=== PATIENT | female | born 1970 | race Caucasian/White ===

== ENCOUNTER → 2016-10-11 | Outpatient (CLI) | payer BC ==
[~2016-10-11] MED LIST: ATEN50TA2 PO; CLON-412 PO; COLA100C PO; HYDR-4274 PO; LISI20TA PO; PARO10TA84 PO; VENL75TA2 PO; VITA100037 PO
--- NOTE | 2016-10-11 12:46 | ECGEPIP ---
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
== END ==
LOC: M ADMPAT 10:57
PROVIDERS: ATTEND Orthopaedic Surgery
DX: Z01.818 Encounter for other preprocedural examination (principal); M54.12 Radiculopathy, cervical region

== ENCOUNTER 2016-10-18 12:02 | Inpatient (IN) | payer BC ==
--- NOTE | 2016-10-13 16:59 | HPE ---
DATE OF ADMISSION: 10/18/2016 HISTORY OF PRESENT ILLNESS: This is a pleasant female with continuing neck discomfort and right arm radiculopathy. She has consented for an C5-C6 cervical decompression and fusion per Dr. Isaak Rodriguez. States that she is healthy and did not require medical clearance. Her x-ray and MRI imaging are consistent with C5-C6 degenerative disk disease with radiculopathy. The patient notes that she has quit smoking. ALLERGIES: No known drug allergies. CURRENT MEDICATIONS: List includes: - atenolol 50 mg - lisinopril-hydrochlorothiazide 20-12.5 mg - venlafaxine HCl 75 mg - paroxetine HCl 10 mg - clonidine HCl 0.1 mg - Colace 100 mg - hydroxyzine HCl 50 mg MEDICAL PROBLEM LIST: 1. Cervicalgia and right arm radiculopathy. 2. Hypertension. 3. Anxiety. 4. Depression. 5. Bursitis of the bilateral hips. SURGICAL HISTORY: Includes ablation endometrial, hemorrhoidectomy. FAMILY HISTORY: Pertinent for arthritis, diabetes, hypertension, hypercholesteremia, heart disease. SOCIAL HISTORY: States that she quit smoking since being counseled by Dr. Isaak Rodriguez, prior to that she was a daily. Denies ethanol intake. REVIEW OF SYSTEMS: She denies chest pain, shortness of breath, dyspnea on exertion, fever, chills, malaise, upper respiratory or urinary tract symptoms. Musculoskeletal: States that she fell on her elbow the other day and got a scratch. PHYSICAL EXAMINATION: She is a pleasant well-developed, well-nourished white female in no acute distress. She is alert and oriented times three. Mood and affect are appropriate. Height 5 feet 6 inches, weight 145, temperature 98.5, blood pressure 141/82, pulse 87, respirations 18. Normocephalic. Neck range of motion is with stiffness throughout range. Wildlife Protector strengths were intact. Radial pulses were 2+. Brisk capillary refill. Chest rises symmetrically. Lungs clear to auscultation. Neck supple. Negative jugular venous distention (JVD) or bruits. Bowel sounds times four, soft, nontender. I did inspect her left elbow, posteriorly she did have a little bruise and scratch without any active bleeding or signs of infection. There is some localized edema. Her EKG was reviewed which showed normal sinus rhythm. This was read by Dr. Kenney on 10/11/2016. Additionally, she had a nasal and sinus culture that returned with normal tea present. IMPRESSION: 1. Cervicalgia with C5-C6 degenerative disk disease and right arm radiculopathy. 2. The patient has consented for a C5-C6 anterior cervical decompression and fusion per Dr. Isaak Rodriguez. 3. On-call to operating room (OR) 1 gram IV Kefzol in operating room (OR). 4. Left olecranon abrasion and contusion which does not appear to be infected. The patient will contact our office if that was to change prior to surgery. 5. She will arrive with her ordered [place] neck brace on surgery day. 6. Sequential compression device (SCD) and thromboembolism deterrents (TEDs) in operating room (OR). TEJAS
[~2016-10-18] VITALS: Ht 170.2 cm; Wt 65.8 kg
[2016-10-18] MEDS: LISINOPRIL 20 MG TAB PO SCH (09:00)
[2016-10-18] MEDS: hydroCHLOROthiazide 12.5 MG CAPSULE PO SCH (09:00)
[2016-10-18] MEDS ORDERED: PERCOCET 5MG/325MG TAB PO ONE (12:15)
[2016-10-18] MEDS ORDERED: CelecoXIB (CeleBREX) 100 MG CAP PO ONE (12:15)
[2016-10-18] MEDS ORDERED: PREGABALIN 75 MG CAP(LYRICA) PO ONE (12:15)
[2016-10-18] MEDS: LR 1,000 ML IV SCH ×2 (13:15→13:27)
[2016-10-18] MEDS ORDERED: methylPREDNISolone 500 MG VIAL (J2930) As Ordered ONE (13:27)
[2016-10-18] MEDS ORDERED: THROMBIN SOLN 20,000 UNITS KIT As Ordered ONE (13:27)
[2016-10-18] MEDS ORDERED: LIDOCAINE W/EPINEPHRINE 1% 20ML VIAL As Ordered ONE (13:27)
[2016-10-18] MEDS ORDERED: fentaNYL 250 MCG/5 ML INJECTION (J3010) As Ordered ONE (13:28)
[2016-10-18] MEDS ORDERED: BACITRACIN PWD 50,000 UNITS VIAL As Ordered ONE (13:28)
[2016-10-18] MEDS ORDERED: MIDAZOLAM INJ 2 MG/2 ML VIAL (J2250) As Ordered ONE (13:29)
[2016-10-18] MEDS ORDERED: LIDOCAINE 2% INJ 100 MG/5 ML SDV (FOR ANES.) As Ordered ONE (13:29)
[2016-10-18] MEDS ORDERED: ROCURONIUM BROMIDE 50 MG/5 ML VIAL As Ordered ONE (13:29)
[2016-10-18] MEDS ORDERED: METOCLOPRAMIDE INJ 10MG/2ML VIAL (J2765) As Ordered ONE (13:29)
[2016-10-18] MEDS ORDERED: PROPOFOL 200 MG/20 ML VIAL As Ordered ONE (13:29)
[2016-10-18] MEDS ORDERED: BACITRACIN PWD 50,000 UNITS VIAL IR ONE ×2 (14:34)
[2016-10-18] MEDS ORDERED: THROMBIN SOLN 20,000 UNITS KIT XX ONE (14:34)
[2016-10-18] MEDS ORDERED: LIDOCAINE W/EPINEPHRINE 1% 20ML VIAL XX ONE (14:34)
[2016-10-18] MEDS ORDERED: PHENYLephrine HCL 500 MCG/5 ML (100MCG/ML) SYRINGE (J2370) As Ordered ONE (14:39)
[2016-10-18] MEDS ORDERED: ePHEDrine SULFATE 25 MG/5 ML(5MG/ML) SYRINGE As Ordered ONE (14:39)
[2016-10-18] MEDS ORDERED: CALCIUM CHLORIDE 10% 1 GM/10 ML SYR As Ordered ONE (14:41)
[2016-10-18] MEDS ORDERED: GLYCOPYRROLATE INJ 0.2 MG/ML 2 ML VIAL As Ordered ONE ×2 (14:49→15:19)
--- NOTE | 2016-10-18 15:16 | REP ---
Clinical: Radiculopathy. Technique: Intraoperative cross-table lateral view. Findings: Probe is identified via anterior approach at the C5-6 level. Signed by Aman Swenson MD 10/18/2016 03:08 P
[2016-10-18] MEDS ORDERED: dexameTHASONE 4 MG/ML 1ML VIAL (J1100) As Ordered ONE (15:18)
[2016-10-18] MEDS ORDERED: ONDANSETRON 4MG/2ML VIAL (J2405) As Ordered ONE (15:19)
[2016-10-18] MEDS ORDERED: NEOSTIGMINE 1MG/ML 5 ML SYRINGE (J2710) As Ordered ONE (15:19)
[2016-10-18] MEDS ORDERED: HYDROmorphone HCL 2 MG/ML 1ML VIAL (J1170) As Ordered ONE (16:16)
[2016-10-18] MEDS ORDERED: METOCLOPRAMIDE INJ 10MG/2ML VIAL (J2765) IV PRN (16:45)
[2016-10-18] MEDS ORDERED: PERCOCET 5MG/325MG TAB PO PRN ×2 (16:45→17:15)
[2016-10-18] MEDS ORDERED: fentaNYL 100 MCG/2 ML INJECTION (J3010) IV PRN (16:45)
[2016-10-18] MEDS ORDERED: ONDANSETRON 4MG/2ML VIAL (J2405) IV PRN (16:45)
[2016-10-18] MEDS ORDERED: LR 1,000 ML IV SCH (16:45)
[2016-10-18] MEDS ORDERED: HYDROmorphone HCL 1 MG/ML SYRINGE (J1170) IV PRN ×2 (17:00)
[2016-10-18] MEDS ORDERED: PROMETHAZINE INJ 25 MG/ML VIAL (J2550) IV PRN (17:15)
[2016-10-18 18:00] VITALS: BP 142/90
[2016-10-18] MEDS ORDERED: ceFAZolin SOD 1 GM in D5W MINI-BAG PLUS 50 ML IV SCH (18:00)
[2016-10-18 18:30] VITALS: BP 145/65
[2016-10-18 19:30] VITALS: BP 134/78
[2016-10-18 20:30] VITALS: BP 122/70
[2016-10-18] MEDS: ceFAZolin SOD 1 GM in D5W MINI-BAG PLUS 50 ML IV SCH (20:55)
[2016-10-18] MEDS ORDERED: hydrOXYzine 50 MG TAB PO SCH (21:00)
[2016-10-18] MEDS: PERCOCET 5MG/325MG TAB PO PRN (21:03)
[2016-10-18] MEDS: DOCUSATE SODIUM 100 MG CAP PO SCH (21:04)
[2016-10-18] MEDS: PARoxetine 10MG TABLET PO SCH (21:04)
[2016-10-18] MEDS: ASCORBIC ACID 500 MG TAB PO SCH (21:04)
[2016-10-18 21:30] VITALS: BP 125/62
[2016-10-18 22:30] VITALS: BP 135/80
[2016-10-19] MEDS: PERCOCET 5MG/325MG TAB PO PRN ×2 (01:00→05:57)
[2016-10-19 01:30] VITALS: BP 148/77
[2016-10-19] MEDS: ceFAZolin SOD 1 GM in D5W MINI-BAG PLUS 50 ML IV SCH (02:16)
[2016-10-19 04:00] VITALS: BP 139/71
[2016-10-19 08:00] VITALS: BP 143/83
[2016-10-19] MEDS ORDERED: ATENOLOL 50 MG TAB PO SCH (09:00)
[2016-10-19] MEDS ORDERED: VENLAFAXINE 37.5 MG TAB PO SCH (09:00)
[2016-10-19] MEDS: DOCUSATE SODIUM 100 MG CAP PO SCH (09:11)
[2016-10-19] MEDS: PARoxetine 10MG TABLET PO SCH (09:12)
[2016-10-19] MEDS: ASCORBIC ACID 500 MG TAB PO SCH (09:12)
[2016-10-19] MEDS: hydroCHLOROthiazide 12.5 MG CAPSULE PO SCH (09:13)
[2016-10-19 09:14] VITALS: BP 148/83
[2016-10-19] MEDS: LISINOPRIL 20 MG TAB PO SCH (09:14)
--- NOTE | 2016-10-20 06:18 | RO ---
DATE OF PROCEDURE: 10/18/2016 PREOPERATIVE DIAGNOSIS: Right upper extremity radiculopathy secondary to herniated disc at C5-6. POSTOPERATIVE DIAGNOSIS : Right upper extremity radiculopathy secondary to herniated disc at C5-6. PROCEDURE PERFORMED: Anterior cervical decompression and fusion procedure at C5-6, specifically anterior cervical discectomy and fusion (ACDF) including preparation of endplate and decompression of the thecal sac and nerve roots at C5-6, structural allograft for spine surgery, harvest and placement of local autograft jaiden millings for spine surgery, anterior cervical instrumentation at C5-6. SURGEON: Isaak Rodriguez MD ENVIRONMENTAL ENGINEERING TECHNICIAN: Nile Evans PA-C ANESTHESIA: General. ESTIMATED BLOOD LOSS: Less than 30 mL, replaced with Crystalloid. COMPONENTS USED: Include a DePuy Shell 12 mm plate, 14 mm screws, and a VG2 fresh frozen tricorticate structural graft size 5 x 7. INDICATIONS: Right upper extremity radiculopathy, herniated disc at C5-6, months of symptoms. The patient has elected for operative intervention. Consent reviewed in detail, including a hawk discussion of the pathology involved, the procedure proposed, alternatives including doing nothing, and risks including, but not limited to, pain, failure, infection, bleeding, blood loss, incomplete relief of symptoms, need for more surgery, and other issues. Patient agrees to proceed. OPERATIVE COURSE: Identified in the holding area. Site, side verified. Brought to the operating room. Once in the operating room, general endotracheal anesthesia was administered. She was positioned in the usual fashion for exposure of the cervical spine. Head halter traction 7 pounds was utilized. Shoulders were draped at the side. Once the patient was prepped and draped in usual fashion and I and the fire fighting equipment specialist were comfortable with the patient's positioning, we began the procedure. Mr. Evans stood on the patient's left side. I stood on the patient's right side. I utilized 3.5 loupe magnification for the procedure. The incision was about two fingerbreadths wide, infiltrated with 1% lidocaine with epinephrine, and made with a #10 blade knife, developed down through skin and subcuticular tissue to the platysma muscle. Platysma was elevated and divided perpendicular to its fibers. I located the omohyoid muscle, elevated it, and divided it perpendicular to its fibers. The dissection continued medial to the carotid sheath, protecting that, and to the surface of the prevertebral fascia, which was elevated in several leaves, exposing the disc annulus complex at C5-6, which was the most prominent palpable disc bulge/annular bulge. Next, I placed a bayonet spinal needle at C5-6 and we obtained a cross table lateral x-ray to verify our level. Next, we then elevated the medial border of the longus colli muscle bilaterally. Distraction pins were placed, followed by the Shadow-Line retractor. I opened the annulus with a #11 blade. I removed disc material using pituitaries. I removed cartilaginous endplate using curved curettes, and then I utilized the oval jaiden to further contour the endplates for later grafting. I removed autograft from the uncinate processes using the oval jaiden, decompressing them posteriorly to the posterior longitudinal ligament. Next, disc material was collected separately. Next, I utilized curved curettes and a Kerrison to remove the posterior longitudinal ligament to expose the thecal sac. Foraminotomy was accomplished bilaterally. Irrigation was accomplished. Rasping was accomplished on the endplates. Sound was utilized on the endplates to verify a size 5 x 7 graft. I implanted a size 5 x 7 with jaiden millings pressed into its surface. I also pressed 5 mL of Progenix demineralized putty into the anterior graft and along the side of the graft as an adjuvant. Next, irrigation had been accomplished. Next, a 12 mm plate was selected and installed with 14 mm screws, which were locked. Cross table lateral x-ray was obtained to verify plate and graft placement. Next, all instruments had been removed. Platysma was reapproximated with interrupted stitch, deep dermis with running stitch, followed by Dermabond. Johnson collar applied. Patient moved to the recovery room after extubation in good condition, moving all four extremities.
--- NOTE | 2016-10-21 19:31 | DSES ---
DATE OF ADMISSION: 10/18/2016 DATE OF DISCHARGE: 10/19/2016 ATTENDING PHYSICIAN: Dr. Isaak Rodriguez ADMISSION DIAGNOSIS: Right upper extremity radiculopathy, C5-6 disc herniation. OTHER DIAGNOSES: Hypertension, anxiety, depression, bilateral hip bursitis. DISCHARGE DIAGNOSES: Right upper extremity radiculopathy, C5-6 disc herniation, status post anterior cervical decompression and fusion C5-6. OPERATION PERFORMED: Anterior cervical decompression and fusion C5-6. HISTORY: This is a pleasant 46-year-old female patient with progressively worsening neck pain, pain radiating to her right upper extremity. She failed to improve with conservative management to include NSAIDs, activity modification, physical therapy. She continued to have symptoms and elected for surgery for continued symptoms. Her nerve conduction studies were consistent with a right upper extremity radiculopathy and her MRI is consistent with a C5-6 disc herniation. HOSPITAL COURSE: The patient was admitted on day of surgery, underwent an anterior cervical decompression and fusion at C5-6 which was uneventful. She did well in the postoperative period and hospital course was without complication. She was up out of bed, was able to tolerate the collar. On day of discharge, she was doing well. She will use her cervical collar as directed. She will use oral pain medications for pain control. She will follow up in our office in 7 to 10 days for surgical followup. She was given instructions to include, but not limited to wound monitoring, activity limitations and wear of the collar. Please refer to the medical record for further details. TEJAS
== END 2016-10-19 10:58 | disposition home or self-care (01) | DRG 321 ==
LOC: M OR 12:02 → M MS5PR 17:20 → M PED 10-19 01:45
PROVIDERS: ADMIT Orthopaedic Surgery; ATTEND Orthopaedic Surgery
PROC: 0RB30ZZ Excision of Cervical Vertebral Disc, Open Approach (ICD-10-PCS; 2016-10-18)
PROC: 01N10ZZ Release Cervical Nerve, Open Approach (ICD-10-PCS; 2016-10-18)
PROC: 0RG20A0 Fusion of 2 or more Cervical Vertebral Joints with Interbody Fusion Device, Anterior Approach, Anterior Column, Open Approach (ICD-10-PCS; principal; 2016-10-18 13:40)
DX: M50.20 Other cervical disc displacement, unspecified cervical region (principal)

== ENCOUNTER 2017-07-30 18:57 | Emergency (ER) | payer BC, MEDICAID ==
[~2017-07-30] VITALS: Ht 170.2 cm; Wt 71.4 kg
[~2017-07-30 18:57] MED LIST changes: -COLA100C PO; +COLA100C5 PO; -HYDR-4274 PO; +HYDR50TA70 PO; +PARO10TA3 PO; -PARO10TA84 PO; -VITA100037 PO; +VITA100067 PO
[2017-07-30] MEDS ORDERED: CLIN150C14 PO (19:13)
[2017-07-30] MEDS ORDERED: clonazePAM 0.5 MG TAB PO ONE (22:00)
[2017-07-30 22:26] VITALS: BP 138/77
== END 2017-07-30 22:27 | disposition home or self-care (01) ==
LOC: M ED 18:57
DX: R21 Rash and other nonspecific skin eruption (principal); G50.1 Atypical facial pain; I10 Essential (primary) hypertension; G47.00 Insomnia, unspecified; F41.9 Anxiety disorder, unspecified; F32.9 Major depressive disorder, single episode, unspecified; F17.200 Nicotine dependence, unspecified, uncomplicated; Z79.899 Other long term (current) drug therapy

== ENCOUNTER → 2018-07-18 | Outpatient (REF) | LOC: M SMT 13:35 | DX: Z00.00 Encounter for general adult medical examination without abnormal findings (principal) ==

== ENCOUNTER → 2019-02-08 | Outpatient (REF) | payer OTHER ==
[~2019-02-08] MED LIST changes: +CLIN150C14 PO
[2019-02-08 13:00] LABS: COLLAGEN EPINEPHRINE 134 SECONDS (74-162)
[2019-02-08 13:40] LABS: PLATELET COUNT, AUTOMATED 415 10^3/uL (150-450)
[2019-02-08 13:46] LABS: C REACTIVE PROTEIN QUANTITATIV < 0.30 MG/DL (0.00-0.30)
[2019-02-08 13:49] LABS: HCG, SERUM QUALITATIVE NEGATIVE (NEGATIVE)
[2019-02-08 13:51] LABS: INR 0.98; PROTHROMBIN TIME 13.1 SECONDS (12.1-14.4)
[2019-02-08 13:52] LABS: PARTIAL THROMBOPLASTIN TIME 32.2 SECONDS (25.4-37.6)
[2019-02-08 14:48] LABS: ERYTHROCYTE SEDIMENTATION RATE 5 mm/hr (0-30)
== END ==
LOC: M LABDRAW1 12:27
PROVIDERS: ATTEND Physical Medicine & Rehabilitation
DX: M51.36 Other intervertebral disc degeneration, lumbar region (principal)

== ENCOUNTER 2019-08-19 12:42 | Day surgery (SDC) | payer OTHER ==
[~2019-08-19] VITALS: Ht 170.2 cm; Wt 69.9 kg
[2019-08-19] MEDS: LR 1,000 ML IV SCH (01:00)
[2019-08-19] MEDS: METAMUCIL (PSYLLIUM) PACKET PO SCH (01:00)
[~2019-08-19 12:42] MED LIST changes: +CelecoXIB (CeleBREX) 100 MG CAP PO ONE; -LISI20TA PO; +LISI20TA19 PO; +NORCO, ANEXSIA 5/325MG TABLET (HYDROcodone/ACETAMINOPHEN) PO ONE; +ceFAZolin SOD 2 GM in IV 1 EA IV ONE
[2019-08-19] MEDS ORDERED: MUPI2OI TOP (13:35)
[2019-08-19] MEDS ORDERED: HYDR-3713 PO (13:35)
[2019-08-19] MEDS ORDERED: CLIN30GE TP (13:35)
[2019-08-19] MEDS ORDERED: DOXE50CA PO (13:35)
[2019-08-19] MEDS ORDERED: TRIA1OI TOP (13:35)
[2019-08-19] MEDS ORDERED: CYCL10TA PO (13:35)
[2019-08-19] MEDS ORDERED: HYDR12.55 PO (13:35)
[2019-08-19] MEDS ORDERED: MELO15TA28 PO (13:35)
[2019-08-19] MEDS ORDERED: CYMB60CA3 PO (13:35)
[2019-08-19] MEDS ORDERED: BUPIVACAINE/EPIN 0.25% 30 ML VIAL As Ordered ONE (18:12)
[2019-08-19] MEDS ORDERED: BACITRACIN PWD 50,000 UNITS VIAL As Ordered ONE (18:12)
[2019-08-19] MEDS ORDERED: THROMBIN SOLN 20,000 UNITS KIT As Ordered ONE (18:12)
[2019-08-19] MEDS ORDERED: LIDOCAINE 2% INJ 100 MG/5 ML SDV (FOR ANES.) As Ordered ONE (20:03)
[2019-08-19] MEDS ORDERED: propofoL 200 MG/20 ML VIAL As Ordered ONE ×2 (20:03→22:21)
[2019-08-19] MEDS ORDERED: ROCURONIUM BROMIDE 50 MG/5 ML VIAL As Ordered ONE ×2 (20:03→22:10)
[2019-08-19] MEDS ORDERED: fentaNYL 250 MCG/5 ML INJECTION (J3010) As Ordered ONE (20:03)
[2019-08-19] MEDS ORDERED: MIDAZOLAM INJ 2 MG/2 ML VIAL (J2250) As Ordered ONE (20:03)
[2019-08-19] MEDS ORDERED: ONDANSETRON 4MG/2ML VIAL (J2405) As Ordered ONE (20:04)
[2019-08-19] MEDS ORDERED: dexameTHASONE 4 MG/ML 1ML VIAL (J1100) As Ordered ONE (20:04)
[2019-08-19] MEDS ORDERED: ACETAMINOPHEN 1000MG 100ML IV BTL (OFIRMEV) (J0131 PER 10MG) As Ordered ONE (20:58)
[2019-08-19] MEDS ORDERED: SUGAMMADEX SODIUM 500 MG/5 ML VIAL (BRIDION) As Ordered ONE (21:03)
[2019-08-19] MEDS ORDERED: PHENYLephrine HCL 500 MCG/5 ML (100MCG/ML) SYRINGE (J2370) As Ordered ONE (21:51)
[2019-08-19] MEDS ORDERED: ePHEDrine SULFATE 25 MG/5 ML(5MG/ML) SYRINGE As Ordered ONE (21:51)
[2019-08-19] MEDS ORDERED: ONDANSETRON 4MG/2ML VIAL (J2405) IV PRN (23:45)
[2019-08-19] MEDS ORDERED: fentaNYL 100 MCG/2 ML INJECTION (J3010) IV PRN (23:45)
[2019-08-19] MEDS ORDERED: PROMETHAZINE INJ 25 MG/ML VIAL (J2550) IV PRN (23:45)
[2019-08-19] MEDS ORDERED: LR 1,000 ML IV SCH (23:45)
[2019-08-19] MEDS ORDERED: NORCO, ANEXSIA 5/325MG TABLET (HYDROcodone/ACETAMINOPHEN) PO PRN ×2 (23:45)
[2019-08-19] MEDS ORDERED: HYDROMORPHONE HCL 0.5 MG/ 0.5 ML SYRINGE (J1170 PER 1) IV PRN (23:45)
[2019-08-20] MEDS: CYCLOBENZAPRINE 10 MG TAB PO PRN ×2 (00:03→08:36)
[2019-08-20] MEDS: HYDROMORPHONE HCL 0.5 MG/ 0.5 ML SYRINGE (J1170 PER 1) IV PRN ×2 (00:18→00:28)
[2019-08-20 01:00] VITALS: BP 130/84
[2019-08-20 01:30] VITALS: BP 130/83
[2019-08-20] MEDS ORDERED: ceFAZolin SOD 2 GM in IV 1 EA IV ONE (02:00)
[2019-08-20 02:30] VITALS: BP 132/84
[2019-08-20 03:30] VITALS: BP 129/83
[2019-08-20] MEDS ORDERED: diphenhydrAMINE 25 MG CAP PO PRN (03:30)
[2019-08-20 04:30] VITALS: BP 130/83
[2019-08-20 06:00] VITALS: BP 120/66
[2019-08-20] MEDS ORDERED: HYDR-3713 PO (06:02)
[2019-08-20] MEDS: METAMUCIL (PSYLLIUM) PACKET PO SCH (08:36)
--- NOTE | 2019-08-20 08:55 | REP ---
Single lateral view lumbar spine: 08/19/2019. Indication: Operative guidance. Findings: The distal tip of the low localizing instrument is posterior to the L5/S1 intervertebral disc. There is no evidence of acute fracture, subluxation or dislocation. Impression: L5/S1 localization. Electronically Signed by Alex Fink DO 08/20/2019 08:46 A
[2019-08-20] MEDS ORDERED: CelecoXIB (CeleBREX) 100 MG CAP PO ONE (09:00)
[2019-08-20] MEDS: LR 1,000 ML IV SCH (09:45)
--- NOTE | 2019-08-29 08:36 | RO ---
DATE OF PROCEDURE: 08/19/2019 PREOPERATIVE DIAGNOSIS: Severe spinal stenosis at L5-S1 secondary to large disc extrusion at L5-S1 with bilateral lower extremity neurogenic claudication/radicular symptoms. POSTOPERATIVE DIAGNOSIS: Severe spinal stenosis at L5-S1 secondary to large disc extrusion at L5-S1 with bilateral lower extremity neurogenic claudication/radicular symptoms. PROCEDURE PERFORMED: Right L5 unilateral laminectomy including decompression of thecal sac and exiting nerve root, right S1 unilateral laminectomy including decompression of thecal sac and traversing S1 nerve root. SURGEON: Isaak Rodriguez MD PAPER FINISHER: none ANESTHESIA: General. ESTIMATED BLOOD LOSS: Was less than 100 mL replaced with crystalloid. COMPLICATIONS: No complications. INDICATIONS: Shila is a 48-year-old woman. She has been having problems with her back going on at some months. She had acute deterioration of her symptoms approximately 10 days prior to admission when she noticed the pain was not only going down her left lower extremity, but now down her right lower extremity, and she also noticed that she cannot stand up anymore. MRI suggested a central to right paracentral disc extrusion. It impinges on the left and the right lateral recess, but it is worse on the right side producing severe lumbar spinal stenosis. The patient elected for operative intervention and we completed a consent document including a short-form history and physical and consent document including a hawk discussion of the procedure proposed, alternatives including doing nothing, which is not advisable in this particular case, and the risks including, but not limited to pain, failure, infection, nerve injury, need for more surgery, incomplete relief of symptoms, paralysis and other problems. She agreed to proceed. OPERATIVE COURSE: Identified in the holding area, site and side verified, brought to the operating. Once general endotracheal anesthesia was administered, she was positioned on the [place] frame for exposure, knees slightly flexed, axillary rolls were utilized. Once I and the braille proofreader were comfortable with the patient's positioning she was then sterilely prepped and draped in the usual fashion. Time out was accomplished. An incision was based on palpation of the iliac crest and bony landmarks in the midline. Infiltrated with 0.25% Marcaine with epinephrine. Next, I utilized 3.5 loupe magnification for the first portion of the case. The incision was made with a 10 blade knife, developed down through the skin and subcuticular tissues to the posterior lumbar fascia. The posterior lumbar fascia was then sharply reflected off of the spinous process of L5 and dissection continued along the lamina of 5. I utilized the high-speed drill to create a divot in the L5 lamina posterior aspect right and placed a Causey-Marcelino in the divot. We then obtained a cross-table lateral x-ray to verify our level and location. Next, this was then removed, dissection continued exposing L5-S1 further. A shadow-line retractor was then installed. Next, the operating microscope was then sterilely draped and brought in for additional portions of the procedure. I removed the posterior lamina of 5 using a Leksell and then removed the remaining posterior lamina of 5 using a high- speed bur. The high-speed bur was utilized to undercut the spinous process of 5, extends superiorly well into the bare area of 5 medially, undercutting the spinous process over the horizon of the thecal sac and laterally removing approximately 15% of the medial aspect of the facette complex, inferiorly extending through the right S1 surface undercutting S1 spinous process to the bare area of S1. Next, I then utilized pituitaries as well as curved curettes and Kerrison's to remove the ligamentum flavum. Next, the thecal sac was appreciated. I then probed along the right side of the thecal sac until I identified the large disc extrusion, which was very superiorly migrated. This is why so much lamina needed to be removed, because of the superior migration. The disc material was freed up using a Causey-Marcelino and removed piecemeal fashion using a Briseno pituitary. A large amount of disc material was removed in this fashion. I also suspect some portions of cartilaginous endplate were incorporated with this extrusion. Next, once I had removed the extrusion we probed in the subligamentous space to find any more friable disc material, some was evacuated using suction. Next, the annulus had a rupture, I was able to enter the annulus using the Briseno pituitary and remove additional friable disc material. Next, I paid particular attention to the contralateral side. I probed under the dura for additional friable extruded disc material, as well as over the horizon probing around the shoulder of the traversing S1 nerve root on the patient's left to make sure there was no additional removable material. Next, neural foramina at 5-1 seemed to be patent on the right. Next, Once I was confident there was no additional disc material that could be effectively retrieved, I irrigated with saline solution as well as concentrated bacitracin solution. We utilized bipolar cautery for hemostasis. I also used thrombin Gelfoam. All thrombin Gelfoam was removed prior to closure, however. Next, once I was comfortable with the appearance of the wound, i removed the retractors. I reapproximated posterior lumbar fascia with interrupted stitch, deep dermis with interrupted stitch, Prineo dressing was applied. The patient was then able to be log-rolled to the hospital bed, extubated, and moved to the recovery room in good condition. For further details, please refer to medical record. MTDD
== END 2019-08-20 11:00 | disposition home or self-care (01) ==
LOC: M SDC 12:42 → M MS5PR 08-20 00:50 → M SDC 08-20 11:00
PROVIDERS: ATTEND Orthopaedic Surgery
DX: M54.16 Radiculopathy, lumbar region (principal); I10 Essential (primary) hypertension; J45.909 Unspecified asthma, uncomplicated; F17.218 Nicotine dependence, cigarettes, with other nicotine-induced disorders; Z79.899 Other long term (current) drug therapy; Z88.5 Allergy status to narcotic agent; Z88.8 Allergy status to other drugs, medicaments and biological substances
CPT/HCPCS: 36415; 63047; 72100; 86850; 86900; 86901; 88304; 96374; C1763; J0131; J0690; J1100; J1170; J2250; J2370; J2405; J3010

== ENCOUNTER → 2020-03-12 | Outpatient (CLI) | payer OTHER ==
[~2020-03-12] MED LIST changes: +CLIN30GE TP; +CYCL-707 PO; +CYMB60CA3 PO; -CelecoXIB (CeleBREX) 100 MG CAP PO ONE; +DOXE50CA PO; +HYDR-3713 PO; +HYDR12.55 PO; -LISI20TA19 PO; +LISI20TA35 PO; +MELO15TA28 PO; +MUPI2OI TOP; -NORCO, ANEXSIA 5/325MG TABLET (HYDROcodone/ACETAMINOPHEN) PO ONE; +TRIA1OI TOP; -ceFAZolin SOD 2 GM in IV 1 EA IV ONE
[2020-03-12 13:26] LABS: PLATELET COUNT, AUTOMATED 371 10^3/uL (150-450)
[2020-03-12 13:37] LABS: INR 0.91
[2020-03-12 13:38] LABS: PARTIAL THROMBOPLASTIN TIME 28.9 SECONDS (25.0-38.4)
[2020-03-12 13:44] LABS: COLLAGEN EPINEPHRINE 120 SECONDS (74-162)
== END ==
LOC: M PLALAB 10:57
PROVIDERS: ATTEND Physician Assistant
DX: Z01.818 Encounter for other preprocedural examination (principal); M51.17 Intervertebral disc disorders with radiculopathy, lumbosacral region; M47.27 Other spondylosis with radiculopathy, lumbosacral region

== ENCOUNTER → 2020-03-12 | Outpatient (CLI) | payer OTHER | LOC: M LABSMTC 10:42 | PROVIDERS: ATTEND Physical Medicine & Rehabilitation | DX: Z01.812 Encounter for preprocedural laboratory examination (principal); Z11.59 Encounter for screening for other viral diseases; Z20.828 Contact with and (suspected) exposure to other viral communicable diseases ==

== ENCOUNTER → 2020-09-03 | Outpatient (CLI) | payer OTHER ==
[2020-09-03 13:37] LABS: BLOOD UREA NITROGEN 15 MG/DL (7-18); CALCIUM LEVEL 6.6 MG/DL (8.5-10.1); CARBON DIOXIDE LEVEL 32 MEQ/L (21-32); CHLORIDE LEVEL 105 MEQ/L (98-107); GLOMERULAR FILTRATION RATE > 60.0 (>51); GLUCOSE, FASTING 137 MG/DL (70-100); POTASSIUM SERUM 4.3 MEQ/L (3.5-5.1); SODIUM LEVEL 139 MEQ/L (136-145)
== END ==
LOC: M PLALAB 09:16
PROVIDERS: ATTEND Physical Medicine & Rehabilitation
DX: M43.16 Spondylolisthesis, lumbar region (principal)

== ENCOUNTER → 2020-09-08 | Outpatient (CLI) | payer OTHER | LOC: M PLALAB 13:58 | PROVIDERS: ATTEND Physical Medicine & Rehabilitation | DX: E83.51 Hypocalcemia (principal) ==